=== PATIENT | female | born 1990 | race Caucasian/White ===

== ENCOUNTER 2016-07-30 13:35 | Emergency (ER) | payer OTHER ==
[2016-07-30] MEDS ORDERED: LIDOCAINE 2% VISCOUS SOLN 20 ML UDCUP PO ONE (13:38)
[2016-07-30] MEDS ORDERED: METOCLOPRAMIDE HCL ORAL SOLN 10 MG/10 ML UDCUP PO ONE (13:38)
[2016-07-30] MEDS ORDERED: ONDANSETRON 4 MG TAB.RAPDIS PO ONE (13:38)
[2016-07-30] MEDS ORDERED: MAG HYDROX/AL HYDROX/SIMETH SUSP 30 ML UDCUP PO ONE (13:38)
--- NOTE | 2016-07-30 13:40 | ER Document Report ---
ED Medical Screen (RME) - General Stated Complaint: CHEST PAIN Mode of Arrival: Wheelchair Information source: Patient Notes: Patient presents to the emergency department with complaints of epigastric pain that radiates into her chest. She reports she vomited all day yesterday. She ate toast today. Patient does have a history of pancreatitis before she had her gallbladder removed. I have greeted and performed a rapid initial assessment of this patient. A comprehensive ED assessment and evaluation of the patient, analysis of test results and completion of the medical decision making process will be conducted by additional ED providers. TRAVEL OUTSIDE OF THE [place] IN LAST 30 DAYS: No - Related Data Allergies/Adverse Reactions: No Known Allergies Allergy (Verified 04/25/16 06:56) Past Medical History Past Surgical History: Reports: Hx Cholecystectomy
[2016-07-30 14:13] LABS: ABSOLUTE LYMPHOCYTES (AUTO) 1.1 10^3/uL (0.5-4.7); ABSOLUTE MONOCYTES (AUTO) 0.5 10^3/uL (0.1-1.4); ABSOLUTE NEUT (AUTO) 2.6 10^3/uL (1.7-8.2); BASOPHILS % (AUTO) 0.4 % (0-2); EOSINOPHILS % (AUTO) 0.6 % (0-6); HEMATOCRIT 36.7 % (36.0-47.0); HEMOGLOBIN 11.7 g/dL (12.0-15.5); HGB HCT DIFFERENCE -1.6; LYMPHOCYTES % (AUTO) 25.3 % (13-45); MEAN CORPUSCULAR HEMOGLOBIN 22.9 pg (27.0-33.4); MEAN CORPUSCULAR HGB CONC 31.9 g/dL (32.0-36.0); MEAN CORPUSCULAR VOLUME 72 fl (80-97); MONOCYTES % (AUTO) 12.5 % (3-13); RED BLOOD COUNT 5.11 10^6/uL (3.72-5.28); RED CELL DISTRIBUTION WIDTH 17.5 % (11.5-14.0); SEGMENTED NEUTROPHILS % (AUTO) 61.2 % (42-78); WHITE BLOOD COUNT 4.2 10^3/uL (4.0-10.5)
[2016-07-30 14:34] LABS: ALANINE AMINOTRANSFERASE 45 U/L (9-52); ALBUMIN 4.7 g/dL (3.5-5.0); ALKALINE PHOSPHATASE 113 U/L (38-126); ANION GAP 15 (5-19); ASPARTATE AMINO TRANSFERASE 54 U/L (14-36); BILIRUBIN,TOTAL 0.5 mg/dL (0.2-1.3); BLOOD UREA NITROGEN 17 mg/dL (7-20); CALCIUM 10.1 mg/dL (8.4-10.2); CARBON DIOXIDE 22 mmol/L (22-30); CHLORIDE 102 mmol/L (98-107); CREATININE RESULT 0.75 mg/dL (0.52-1.25); GLUCOSE 154 mg/dL (75-110); LIPASE 64.2 U/L (23-300); POTASSIUM 3.6 mmol/L (3.6-5.0); SODIUM 139.4 mmol/L (137-145); TOTAL PROTEIN 7.7 g/dL (6.3-8.2)
--- NOTE | 2016-07-30 16:06 | ER Document Report ---
ED General - General Chief Complaint: Epigastric Pain Stated Complaint: CHEST PAIN Mode of Arrival: Wheelchair Information source: Patient Notes: Patient presents to the emergency department with complaints of epigastric pain that radiates into her chest. Patient reports she was vomiting all day yesterday. 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 Patient reports she started having pain. Denies vomiting diarrhea today denies fever. Reports history of pancreatitis she had her gallbladder taken out. TRAVEL OUTSIDE OF THE [place] IN LAST 30 DAYS: No - HPI Onset: Just prior to arrival Onset/Duration: Sudden Quality of pain: Sharp Severity: Severe Pain Level: 5 Associated symptoms: Nausea, Vomiting - Yesterday Exacerbated by: Denies Relieved by: Denies Similar symptoms previously: Yes Recently seen / treated by doctor: No - Related Data Allergies/Adverse Reactions: No Known Allergies Allergy (Verified 07/30/16 13:41) Past Medical History - General Information source: Patient - Social History Smoking Status: Unknown if Ever Smoked Chew tobacco use (# tins/day): No Frequency of alcohol use: None Drug Abuse: None Occupation: [employer] Lives with: Family Family History: Reviewed & Not Pertinent Patient has suicidal ideation: No Patient has homicidal ideation: No Renal/ Medical History: Denies: Hx Peritoneal Dialysis GI Medical History: Reports: Other - Pancreatitis Past Surgical History: Reports: Hx Cholecystectomy Review of Systems - Review of Systems Notes: Review HPI for review of systems., All other systems negative Physical Exam - Vital signs Vitals: Temp Pulse Resp BP Pulse Ox 97.3 F 66 18 147/78 H 100 07/30/16 13:42 07/30/16 13:42 07/30/16 13:42 07/30/16 13:42 07/30/16 13:42 - Notes Notes: PHYSICAL EXAMINATION: GENERAL: holding her stomach, looks in sever pain HEAD: Atraumatic, normocephalic. EYES: Pupils equal round , extraocular movements intact, sclera anicteric, conjunctiva are normal. ENT: nares patent, Moist mucous membranes. NECK: Normal range of motion, supple without lymphadenopathy LUNGS: CTAB and equal. No wheezes rales or rhonchi. HEART: Regular rate and rhythm without murmurs ABDOMEN: Soft, epigastric tenderness. No guarding, no rebound EXTREMITIES: Normal range of motion, no pitting edema. No cyanosis. NEUROLOGICAL: Cranial nerves grossly intact. Normal sensory/motor PSYCH: Normal mood, normal affect. SKIN: Warm, Dry, normal turgor, no rashes or lesions noted Course - Re-evaluation Re-evalutation: 07/30/16 16:04 Patient has been waiting for a bed in [facility] in a chair. She reports she feels much better after the GI cocktail. She is requesting to leave and go back to work on the second floor. I reevaluated the patient and she is calm in no distress. O'clock to urinate and call her with results. - Vital Signs Vital signs: Temp Pulse Resp BP Pulse Ox 97.3 F 66 18 147/78 H 100 07/30/16 13:42 07/30/16 13:42 07/30/16 13:42 07/30/16 13:42 07/30/16 13:42 - Laboratory Result Diagrams: 07/30/16 13:55 07/30/16 13:55 Laboratory results interpreted by me: 07/30/16 07/30/16 13:55 13:55 Hgb 11.7 L MCV 72 L MCH 22.9 L MCHC 31.9 L RDW 17.5 H Glucose 154 H AST 54 H Discharge - Discharge Clinical Impression: Epigastric pain Condition: Stable Disposition: HOME, SELF-CARE Instructions: Evaluation of Upper Abdominal Pain ([facility]) Additional Instructions: *You have been evaluated for epigastric abdominal pain *Take medication as prescribed *Follow up with a primary care provider within 3-5 days *Return to ED for worsening condition, changes, needs *Return to ED if not better in 24 hours
--- NOTE | 2016-07-30 16:50 | ER Document Report ---
ED General - General Chief Complaint: Epigastric Pain Stated Complaint: CHEST PAIN Mode of Arrival: Wheelchair Information source: Patient Notes: Presents to the emergency department with complaints of epigastric pain that radiates into her chest. She reports she vomited all day yesterday. She repeat 2 pieces of toast this morning and went to work up on the second floor. She reports she started having epigastric pain. Denies fever vomiting diarrhea. Reports she takes Zantac. She also reports history of pancreatitis before she had her gallbladder removed. TRAVEL OUTSIDE OF THE [place] IN LAST 30 DAYS: No - HPI Onset: Just prior to arrival Onset/Duration: Sudden Severity: Moderate Pain Level: 3 Associated symptoms: None Exacerbated by: Denies Relieved by: Denies Similar symptoms previously: Yes Recently seen / treated by doctor: No - Related Data Allergies/Adverse Reactions: No Known Allergies Allergy (Verified 07/30/16 13:41) Past Medical History - General Information source: Patient Last Menstrual Period: 2 days ago - Social History Smoking Status: Unknown if Ever Smoked Cigarette use (# per day): No Frequency of alcohol use: None Drug Abuse: None Occupation: [employer] nurse Lives with: Family Family History: Reviewed & Not Pertinent Patient has suicidal ideation: No Patient has homicidal ideation: No Renal/ Medical History: Denies: Hx Peritoneal Dialysis GI Medical History: Reports: Hx Gastroesophageal Reflux Disease Past Surgical History: Reports: Hx Cholecystectomy Review of Systems - Review of Systems Notes: Review HPI for review of systems., All other systems negative Physical Exam - Vital signs Vitals: Temp Pulse Resp BP Pulse Ox 97.3 F 66 18 147/78 H 100 07/30/16 13:42 07/30/16 13:42 07/30/16 13:42 07/30/16 13:42 07/30/16 13:42 Course - Re-evaluation Re-evalutation: 07/30/16 16:49 Patient reports she feels much better once her back to work. Patient was instructed on the importance of follow-up with a primary care provider, she was also instructed to monitor her diet do not eat anything after eating spicy. She verbalized understanding to all instructions. Urinalysis just collected. Will monitor results and call patient if she needs antibiotics. Patient drinking water without complaints of pain. - Vital Signs Vital signs: Temp Pulse Resp BP Pulse Ox 97.8 F 75 18 119/75 98 07/30/16 16:56 07/30/16 16:56 07/30/16 16:56 07/30/16 16:56 07/30/16 16:56 - Laboratory Result Diagrams: 07/30/16 13:55 07/30/16 13:55 Laboratory results interpreted by me: 07/30/16 07/30/16 07/30/16 13:55 13:55 16:40 Hgb 11.7 L MCV 72 L MCH 22.9 L MCHC 31.9 L RDW 17.5 H Glucose 154 H AST 54 H Urine Ketones TRACE H Discharge - Discharge Clinical Impression: Epigastric abdominal pain, Elevated blood pressure reading Condition: Stable Disposition: HOME, SELF-CARE Instructions: Evaluation of Upper Abdominal Pain ([facility]) Additional Instructions: *You have been evaluated for epigastric abdominal pain *Take zantac as prescribed *Clear liquid diet, advance as tolerated *Follow up with a primary care provider within one week *Return to ED for worsening condition, changes, needs, return of pain, concerns *Return to ED if not better in 24 hours Monitor your blood pressure. Your blood pressure was elevated today. This may be because you were anxious, in pain or because you need medication. It is important to follow up with your primary care provider for full evaluation. Forms: Elevated Blood Pressure, Return to Work
[2016-07-30 17:14] LABS: APPEARANCE,URINE SLIGHTLY-CLOUDY; BILIRUBIN,URINE NEGATIVE (NEGATIVE); GLUCOSE, URINE NEGATIVE (NEGATIVE); KETONES,URINE TRACE mg/dL (NEGATIVE); LEUKOCYTE ESTERASE,URINE NEGATIVE (NEGATIVE); NITRITE,URINE NEGATIVE (NEGATIVE); PROTEIN,URINE NEGATIVE (NEGATIVE); URINE SPECIFIC GRAVITY 1.027; UROBILINOGEN,URINE NEGATIVE mg/dL (<2.0)
[2016-07-30 17:34] VITALS: BP 119/75
== END 2016-07-30 17:00 | disposition home or self-care (01) ==
LOC: ER 13:35
DX: R10.13 Epigastric pain (principal); R03.0 Elevated blood-pressure reading, without diagnosis of hypertension; R07.9 Chest pain, unspecified; R11.10 Vomiting, unspecified; Z90.49 Acquired absence of other specified parts of digestive tract
CPT/HCPCS: 99284; 36415; 83690; 84703; 85025; 80053; 81001; S0119; J3490